=== PATIENT | female | born 1980 | race Caucasian/White ===

== ENCOUNTER 2019-08-06 10:41 | Outpatient (CLI) | payer OTHER, SELFPAY ==
--- NOTE | ~2019-08-06 | US_ITS ---
EXAMINATION: US OB transvaginal DATE: 08/06/2019 11:23 INDICATION: First trimester dating, history of spontaneous TECHNIQUE: Real-time pelvic transabdominal and transvaginal ultrasound was performed. COMPARISON: None. FINDINGS: The uterus measures 9.6 x 5.1 x 5.8 cm. There is an intrauterine gestational sac. A yolk s ac is identified. The pole is not yet identified, likely due to early gestation. There is a 1.5 x 2.2 x 2.3 cm hypoechoic area adjacent to the gestational sac which may be within the endometrial c anal. The ovaries are not visualized however no adnexal abnormality is seen. There is no free fluid i n the pelvis. IMPRESSION: 1. Intrauterine gestational sac without visible pole which could be due to early . 2. Hypoechoic area adjacent to the gestational sac which could reflect subchorionic hemorrhage, bligh sylvester ovum, or hemorrhage within the endometrial canal. Reviewed, dictated and finalized at location B. IMPRESSION: 1. Intrauterine gestational sac without visible pole which could be due t o early . 2. Hypoechoic area adjacent to the gestational sac which could reflect subchori onic hemorrhage, blighted ovum, or hemorrhage within the endometrial canal.
== END 2019-08-06 10:42 ==
PROVIDERS: Visit Provider Obstetrics & Gynecology Gynecology
DX: O26.21 Pregnancy care for patient with recurrent pregnancy loss, first trimester (principal); Z3A.00 Weeks of gestation of pregnancy not specified
CPT/HCPCS: 76817

== ENCOUNTER 2019-08-12 13:54 | Outpatient (CLI) | payer OTHER, SELFPAY ==
--- NOTE | ~2019-08-12 | US_ITS ---
US OB transvaginal DATE: 08/12/2019 14:23 INDICATION: Gestational age determination, evaluate for viability. TECHNIQUE: Real-time imaging and Doppler analysis via transvaginal approach COMPARISON: 08/06/2019 obstetrical ultrasound FINDINGS: The uterus measures approximately 10.4 cm height, 5.2 cm anteroposterior and 6.7 cm transve rse dimension. An intrauterine gestational sac is identified with yolk sac and pole. heart rate of 120 b pm. [place]-rump length averages 0.32 cm, consistent with 6 weeks estimated gestational age +/- 4 days. LOIS by ultrasound is 04/06/2020. Again noted is a cystic area adjacent to the gestational sac, measuring up to 3.7 x 3.2 x 2.6 cm dime nsion, most likely some fluid in the endometrial cavity, with surrounding prominent endometrial echog enicity. There is some additional fluid in the lower endometrial cavity. Differential diagnosis for t he cystic collection would include less likely: blighted ovum, subchorionic hemorrhage. Continued son ographic follow-up is recommended. The right ovary is not visualized. The left ovary measures 2.3 x 1.8 x 1.9 cm. No pelvic free fluid c ollection is detected. IMPRESSION: Large fluid collection apparently within the endometrial cavity, with prominent surroundi ng endometrial echogenicity. Continued sonographic follow-up is recommended Early intrauterine gestational sac; estimated gestational age of 6 weeks +/- 4 days Reviewed, dictated and finalized at Location A. Reviewed, dictated and finalized at location A. IMPRESSION: Large fluid collection apparently within the endometrial cavity, wi th prominent surrounding endometrial echogenicity. Continued sonographic follow -up is recommended Early intrauterine gestational sac; estimated gestational age of 6 weeks +/- 4 days
== END 2019-08-12 13:55 ==
PROVIDERS: Visit Provider Obstetrics & Gynecology Gynecology
DX: O36.8910 Maternal care for other specified fetal problems, first trimester, not applicable or unspecified (principal); Z3A.01 Less than 8 weeks gestation of pregnancy
CPT/HCPCS: 76817

== ENCOUNTER 2019-08-17 12:56 | Outpatient (CLI) | payer OTHER, SELFPAY ==
--- NOTE | ~2019-08-17 | US_ITS ---
EXAMINATION: US OB transvaginal EXAM DATE: 08/17/2019 13:21 INDICATION: , vaginal spotting. First trimester. TECHNIQUE: Pelvic obstetrical transvaginal sonogram was performed by a technologist. There are mult iple grayscale and Doppler images available for interpretation. Comparison is made to prior examinati on from 08/12/2019. FINDINGS: There is intrauterine gestation identified with yolk sac and pole, crown-rump length of 5 mm corresponding to estimated gestational age 6 weeks 2 days. Could not accurately obtain M-mode image, patient was shaking uncontrollably during the exam. There is no heart rate identified on the cine loop or at other times during the exam. There is no evidence of subchorionic hemorrhage, with re solution of previously seen large cystic space adjacent to the chorion on prior study. Left ovary is unremarkable. No evidence free pelvic fluid. IMPRESSION: Absence of heart rate today, demise. Resolution of previously seen subchorio renea fluid collection. Follow-up ultrasound or beta hCG as indicated clinically. Reviewed, dictated and finalized at location B. IMPRESSION: Absence of heart rate today, demise. Resolution of pre viously seen subchorionic fluid collection. Follow-up ultrasound or beta hCG as indicated clinically.
== END 2019-08-17 12:57 ==
PROVIDERS: Visit Provider Obstetrics & Gynecology Gynecology
DX: O26.851 Spotting complicating pregnancy, first trimester (principal); Z3A.00 Weeks of gestation of pregnancy not specified
CPT/HCPCS: 76817

== ENCOUNTER 2020-03-24 21:31 | Observation (INO) | payer SELFPAY ==
--- NOTE | 2020-03-24 21:30 | OBADM ---
This patient, Dee Brandon, admitted to the OB room OB Post 117 for observation. Patient/family oriented to hospital policies and general routines including ID bracelet, bed and alarms, visiting hours, pain management, procedures, bathroom and other care routines, personal items, smoking policy, room service/diet, and visiting hours. Patient/Family are encouraged to report perceived risks to care and to ask questions if they do not understand what they are told or what they should do.
[2020-03-24 21:39] VITALS: BP 116/66; PULSE 88
[2020-03-24 21:45] VITALS: BP 112/67; PULSE 87; TEMP 37.2
[2020-03-24 22:00] VITALS: BP 116/68; PULSE 91
[2020-03-24] MEDS: ACETAMINOPHEN 500 MG TABLET 1000 MG PO (22:15)
[2020-03-24 22:16] VITALS: BP 117/61; PULSE 78
[2020-03-24] MEDS: NIFEdipine 10 MG CAPSULE PO (22:19)
[2020-03-24 23:36] LABS: Glucose Point of Care 122 (65-105)
[2020-03-25] VITALS: BMI 31.4
[2020-03-25 01:46] VITALS: TEMP 36.6
[2020-03-25 01:47] VITALS: BP 95/51; PULSE 76
[2020-03-25 05:35] VITALS: BP 108/62; PULSE 71; TEMP 36.8
[2020-03-25 05:52] LABS: Glucose Point of Care 103 (65-105)
[2020-03-25 08:44] VITALS: BP 83/48; PULSE 76; TEMP 37.1
--- NOTE | 2020-04-20 11:57 | PM.OBTRLD ---
OB - Triage/Final Diagnosis Evaluation Laboratory results: Laboratory Tests 03/24/20 03/25/20 23:29 05:46 POC Capillary Glucose 122 H 103 Final Diagnosis (1) contractions: Code(s): O47.9 - False labor, unspecified Status: Acute
== END 2020-03-25 11:40 | disposition home or self-care (01) ==
PROVIDERS: Admitting Provider Obstetrics & Gynecology Gynecology; Visit Provider Obstetrics & Gynecology
DX: O47.9 False labor, unspecified (principal); Z3A.00 Weeks of gestation of pregnancy not specified
CPT/HCPCS: A9270; G0378; G0379

== ENCOUNTER 2020-05-12 12:26 | Outpatient (RCR) | payer BC, OTHER, SELFPAY ==
[2020-04-07 14:52] VITALS: BP 104/58; PULSE 85
[2020-04-28 14:28] VITALS: BP 114/54; PULSE 92
[2020-05-06 11:35] VITALS: BP 122/42; PULSE 81
[2020-05-09 13:07] VITALS: BP 123/74; PULSE 84
[2020-05-12 13:55] VITALS: BP 123/74; PULSE 84
== END 2020-05-17 07:46 | disposition home or self-care (01) ==
LOC: ANHOBOP 12:26
PROVIDERS: Visit Provider Obstetrics & Gynecology Gynecology
DX: O24.419 Gestational diabetes mellitus in pregnancy, unspecified control (principal); Z3A.33 33 weeks gestation of pregnancy; Z3A.36 36 weeks gestation of pregnancy; Z3A.37 37 weeks gestation of pregnancy; Z3A.38 38 weeks gestation of pregnancy
CPT/HCPCS: 59025

== ENCOUNTER 2020-05-16 05:07 | Inpatient (IN) | payer OTHER, SELFPAY ==
[2020-05-16] VITALS (102 sets, daily range): BP systolic 96–138; BP diastolic 50–82; PULSE 62–187; RESP 16–18; TEMP 36.1–37.1; O2SAT 96–100; BMI 31.6
--- NOTE | 2020-05-16 05:07 | LDADM ---
This patient, Dee Brandon, was admitted to Labor/Delivery/Recovery 102 on 05/16/20 at 05:07. Plans for labor, pain management and were discussed with patient. Patient/family oriented to hospital policies and general routines including ID bracelet, bed and alarms, visiting hours, pain management, procedures, bathroom and other care routines, personal items, smoking policy, room service/diet and guest tray routines, security routines, and visiting hours. Patient/Family are encouraged to report perceived risks to care and to ask questions if they do not understand what they are told or what they should do. See OBIX for further documentation.
[2020-05-16 05:43] LABS: Glucose Point of Care 131 (65-105)
[2020-05-16 05:56] LABS: Basophils Percent Auto 0.4 % (0.2-1.2); Eosinophils Absolute Auto 0.1 K/mm3 (0-0.3); Eosinophils Percent Auto 1.7 % (0-4.4); Hematocrit 30.9 % (37.0-47.0); Hemoglobin 9.5 g/dL (12.0-15.0); Immature Granulocyte Absolute 0.04 K/mm3 (0.00-0.031); Immature Granulocyte Percent A 0.5 % (0-0.5); Lymphocytes Absolute Auto 1.41 K/mm3 (0.9-3.2); Mean Corpuscular HGB Conc 30.7 g/dl (32-36); Mean Corpuscular Hemoglobin 22.8 pg (26-34); Mean Corpuscular Volume 74.1 fl (80-100); Mean Platelet Volume 10.7 fl (7.4-10.4); Monocytes Absolute Auto 0.7 K/mm3 (0.1-0.6); Monocytes Percent Auto 8.3 % (2.6-8.5); Neutrophils Percent Auto 72.1 % (45.5-73.1); Platelet Count Result 214 k/mm3 (150-375); Red Blood Count 4.17 M/mm3 (4.2-5.4); Red Cell Distribution Width 15.9 % (11.5-14.5); White Blood Count 8.3 K/mm3 (4.5-10.0)
[2020-05-16] MEDS: LACTATED RINGERS 1,000 ML 125 ML IV CONT ×2 (05:57→08:15)
[2020-05-16] MEDS: AMPICILLIN 2 GM/NS 100 ML 2 GM/100 ML BAG IVPB (05:57)
[2020-05-16] MEDS: OXYTOCIN 30 UNITS/NS 500 ML 30 UNITS/500 ML BAG IV CONT (06:01)
[2020-05-16 06:41] LABS: HIV 1/2 Ab P24 Ag Result Negative (Negative)
--- NOTE | 2020-05-16 07:46 | WPDOBADMIT ---
Obstetrics - Admit Note Admission Note: record reviewed. No pertinent additions to the history and/or any subsequent changes in the physical findings that are not consistent with the expected course of the were found. Additions to the history and/or subsequent changes in the physical findings follow. None. Here for MIL for cholestasis of . Cervix 3-4/50/-2 AROM with clear fluid. FHTs reactive
--- NOTE | 2020-05-16 08:12 | WPDANESEPPF ---
Anes - Initial Pre Proc Eval Procedure: labor epidural Date/Time: 05/16/20 08:12 Surgeon: Alexandra Christopher MD Pre Op Diagnosis: labor pain Pre Op Diagnosis: Induction of Labor Patient Data Age: 39 Gender: F Height: 1.68 m Weight: 89 kg Last Vital Signs Temp 37.1 C 05/16/20 07:30 Pulse 73 05/16/20 08:11 Resp 18 05/16/20 05:26 BP 130/71 05/16/20 08:11 Pulse Ox 100 05/16/20 08:11 Allergies Allergy/AdvReac Type Severity Reaction Status Date / Time lactose AdvReac Mild Nausea and Verified 05/09/20 12:53 Vomiting Home Medications Medication Instructions Recorded Confirmed Type prenat.vits,nora,ayw-dfth-rookz 1 tablet PO DAILY 03/25/20 05/16/20 History cholecalciferol (vitamin D3) 10,000 unit PO DAILY 05/09/20 05/16/20 History [Vitamin D3] Laboratory Tests 05/16/20 05/16/20 05/16/20 05:34 05:34 05:34 WBC 8.3 K/mm3 K/mm3 (4.5-10.0) RBC 4.17 M/mm3 L M/mm3 (4.2-5.4) Hgb 9.5 g/dL L g/dL (12.0-15.0) Hct 30.9 % L % (37.0-47.0) MCV 74.1 fl L fl (80-100) MCH 22.8 pg L pg (26-34) MCHC 30.7 g/dl L g/dl (32-36) RDW 15.9 % H % (11.5-14.5) Plt Count 214 k/mm3 k/mm3 (150-375) MPV 10.7 fl H fl (7.4-10.4) Immature Gran % (Auto) 0.5 % % (0-0.5) Neut % (Auto) 72.1 % % (45.5-73.1) Lymph % (Auto) 17.0 % L % (18.3-44.2) [place] % (Auto) 8.3 % % (2.6-8.5) Eos % (Auto) 1.7 % % (0-4.4) Baso % (Auto) 0.4 % % (0.2-1.2) Lymph # (Auto) 1.41 K/mm3 K/mm3 (0.9-3.2) [place] # (Auto) 0.7 K/mm3 H K/mm3 (0.1-0.6) Eos # (Auto) 0.1 K/mm3 K/mm3 (0-0.3) Baso # (Auto) 0.0 K/mm3 K/mm3 (0.0-0.1) Abs Immat Gran (auto) 0.04 K/mm3 H K/mm3 (0.00-0.031) Absolute Neuts (auto) 6.0 K/mm3 K/mm3 (1.3-6.7) Absolute Nucleated RBC 0.0 K/mm3 K/mm3 (0.0-0.012) Nucleated RBC % 0.0 % % (0.0-0.2) POC Capillary Glucose RPR Pending HIV 1&2 Ab/P24 Ag 4thGn Negative (Negative) Blood Type Antibody Screen 05/16/20 05/16/20 05:34 05:37 WBC RBC Hgb Hct MCV MCH MCHC RDW Plt Count MPV Immature Gran % (Auto) Neut % (Auto) Lymph % (Auto) [place] % (Auto) Eos % (Auto) Baso % (Auto) Lymph # (Auto) [place] # (Auto) Eos # (Auto) Baso # (Auto) Abs Immat Gran (auto) Absolute Neuts (auto) Absolute Nucleated RBC Nucleated RBC % POC Capillary Glucose 131 mg/dl H mg/dl (65-105) RPR HIV 1&2 Ab/P24 Ag 4thGn Blood Type O Positive Antibody Screen Negative Patient hx anesthesia problems: none Family hx anesthesia problems: none [facility] Past Medical History Medical History (Updated 04/20/20 @ 11:57 by Valentín Ortiz MD) contractions Family History Family History Other No pertinent family history Social History Social History Smoking status: Never smoker Substance use: never Gender identity (if verbalized by the patient): Female Spiritual care concerns: No Anes - Eval Final PreProcedure Day of Procedure 05/16/20 08:12 Patient weight: obese ASA classification: III Anesthesia type and monitoring: regional epidural Informed Consent: The patient's anesthetic plan and its attendant risks and benefits were discussed with the patient/family/POA. Questions were solicited and answers provided to the satisfaction of the patient/family/POA.
[2020-05-16] MEDS: AMPICILLIN 1 GM/NS 50 ML 1 GM/50 ML BAG IVPB (09:47)
[2020-05-16 10:13] LABS: Glucose Point of Care 78 (65-105)
[2020-05-16] MEDS: OXYTOCIN 10 UNITS/ML VIAL 20 UNITS (12:48)
--- NOTE | 2020-05-16 13:08 | PM.OBPRVD ---
OB - Delivery Note Procedure Delivery date: 05/16/20 Procedure: events: Gestational Diabetes (cholestasis of ) Intrapartal events: None Induction method: AROM and per pitocin protocol Delivery monitor: external FHT and external uterine Route of delivery: Laceration Description: None Specimen: No Quantitative Blood Loss (ml): 427 Anesthesia type: Epidural Disposition: floor Baby Date of : 05/16/20 Weeks of gestation at delivery: 38 Infant gender: Female Weight (pounds): 8 Weight (ounces): 9 presentation: vertex position: Left Occiput Anterior Placenta delivery description: Spontaneous cord vessel description: 3 Vessels score one minute: 8 score five minutes: 9
--- NOTE | 2020-05-16 13:13 | PM.OBDSVD ---
DS: Admitting Diagnosis Admitting Diagnosis Admitting Diagnosis: IUP 38 1/2 wks GDMA2 Cholestasis of DS: Discharge Diagnosis Discharge Diagnosis (1) (normal spontaneous vaginal delivery): Code(s): O80 - Encounter for full-term uncomplicated delivery Status: Acute (2) Cholestasis during : Code(s): O26.619 - Liver and biliary tract disorders in , unspecified trimester; K83.1 - Obstruction of bile duct Status: Acute (3) GDM, class A2: Code(s): O24.419 - Gestational diabetes mellitus in , unspecified control Status: Acute (4) 38 weeks gestation of : Code(s): Z3A.38 - 38 weeks gestation of Status: Acute OB - DS: Summary OB Procedures : NST and Ultrasound OB Procedures Intrapartum: Spontaneous Vag Delivery OB Procedures: : None Peripartum Data Infant Delivery Method: Natural Vaginal Laceration Description: None complications: none Status at Discharge Functional status at discharge: independent ambulation Overall status at discharge: patient is progressing back to baseline Time Spent with Patient Time attestation: Total time spent providing and/or coordinating discharge services: DS: Data Data Completed and Pending Labs on day of discharge: Labs from last 24 hours 05/16/20 05/16/20 05/16/20 09:42 05:37 05:34 WBC RBC Hgb Hct MCV MCH MCHC RDW Plt Count MPV Immature Gran % (Auto) Neut % (Auto) Lymph % (Auto) [place] % (Auto) Eos % (Auto) Baso % (Auto) Lymph # (Auto) [place] # (Auto) Eos # (Auto) Baso # (Auto) Abs Immat Gran (auto) Absolute Neuts (auto) Absolute Nucleated RBC Nucleated RBC % POC Capillary Glucose 78 131 H RPR HIV 1&2 Ab/P24 Ag 4thGn Blood Type O Positive Antibody Screen Negative 05/16/20 05/16/20 05/16/20 05:34 05:34 05:34 WBC 8.3 RBC 4.17 L Hgb 9.5 L Hct 30.9 L MCV 74.1 L MCH 22.8 L MCHC 30.7 L RDW 15.9 H Plt Count 214 MPV 10.7 H Immature Gran % (Auto) 0.5 Neut % (Auto) 72.1 Lymph % (Auto) 17.0 L [place] % (Auto) 8.3 Eos % (Auto) 1.7 Baso % (Auto) 0.4 Lymph # (Auto) 1.41 [place] # (Auto) 0.7 H Eos # (Auto) 0.1 Baso # (Auto) 0.0 Abs Immat Gran (auto) 0.04 H Absolute Neuts (auto) 6.0 Absolute Nucleated RBC 0.0 Nucleated RBC % 0.0 POC Capillary Glucose RPR Pending HIV 1&2 Ab/P24 Ag 4thGn Negative Blood Type Antibody Screen Discharge Plan Discharge Attending physician on discharge: Alexandra Christopher Consulting providers: Shree Johnson Discharging Clinician: Alexandra Christopher Anticipated Discharge Date/Time: 05/18/20 13:15 Patient Disposition: Home, Self-Care Activity: may shower and pelvic rest Diet: regular Discharge Instructions: Education: Mom and Baby Guide Given to: Mother Follow-Up: Call your delivering provider's office for an appointment to be seen in: 6 Weeks Mom and baby should come to the [facility] for the follow-up appointment. Appointment Date/Time: at What to expect at your follow-up visit: Blood Pressure Check Physical Assessment Call [phone] if you are unable to keep your appointment time. BREAST CARE: * Wear a snug supportive bra. * For engorgement discomfort: Breast Feeding: * Apply warm moist washcloths * Express milk as needed to relieve engorgement * Wear loose clothing Bottle Feeding: * May apply ice packs * For sore nipples: * Identify correct latch-on * Apply warm moist washcloths before and after nursing * Air dry nipples after nursing * May apply Lansinoh cream to nipples EPISIOTOMY/PERINEAL CARE: * Until bleeding stops, use your jessica bottle after urinating * Change your pa
[2020-05-16] MEDS: OXYTOCIN 30 UNITS/NS 500 ML 30 UNITS/500 ML BAG 125 UNITS IV CONT (13:34)
[2020-05-16] MEDS: IBUPROFEN 600 MG TABLET PO (15:10)
[2020-05-16] MEDS: ACETAMINOPHEN 325 MG TABLET 650 MG PO (16:11)
[2020-05-17] MEDS: IBUPROFEN 600 MG TABLET PO ×2 (05:00→14:04)
[2020-05-17] MEDS: ACETAMINOPHEN 325 MG TABLET 650 MG PO ×2 (05:00→16:57)
[2020-05-17 05:51] LABS: Hematocrit 24.4 % (37.0-47.0); Hemoglobin 7.5 g/dL (12.0-15.0)
[2020-05-17 07:04] LABS: Rapid Plasma Reagin Non-Reactive (NonReactive)
--- NOTE | 2020-05-17 07:35 | WPDANLDPN2 ---
Anes-Prog Note L&D Date/Time: 05/17/20 07:35 Comfortable throughout: labor and delivery Neuraxial method: epidural Epidural/Spinal procedure site: clean & non-tender Neuro status: Neuro function grossly intact. Cardiovascular status: normal Respiratory status: normal Airway patency: baseline Mental status: baseline Post-Op hydration status: normal Vital Signs: Last Vital Signs Temp 36.1 C L 05/16/20 20:00 Pulse 69 05/16/20 20:00 Resp 16 05/16/20 20:00 BP 110/64 05/16/20 20:00 Pulse Ox 100 05/16/20 20:00 Pain score (VAS): 05/21 I/O: Intake & Output 05/16/20 05/16/20 05/17/20 15:59 23:59 07:59 Intake Total 2550 Output Total 1227 Balance 1323 Post-procedural complaints: none Patient feedback: Patient satisfied with anesthetic care.
[2020-05-17 08:15] VITALS: BP 92/51; PULSE 65; RESP 18; TEMP 36.6; O2SAT 99
[2020-05-17] MEDS: DOCUSATE SODIUM 100 MG CAPSULE PO ×2 (08:22→16:56)
[2020-05-17] MEDS: POLYSACCHARIDE IRON COMPLEX 150 MG CAPSULE PO ×2 (08:22→16:56)
[2020-05-17] MEDS: MULTIVIT/MIN/PREN/FOL AC/IRON TABLET 1 TAB PO (08:22)
--- NOTE | 2020-05-17 12:48 | PC.NURSE ---
Consulted with patient, reviewed feeding cues, frequencies, duration of feedings, feeding elimination flow sheet, and signs of adequate intake. Demonstrated stimulation techniques to wake for feeding. Assisted with to breast. Reviewed positioning/alignment, holding breast and asymmetrical latch on. was able to latch correctly. Infant nursed eagerly, with steady draws and frequent swallowing noted. Reviewed signs of a correct latch, effective nursing and suck swallow ratio. was able to maintain latch without discomfort to mother. Nipple care reviewed. Instructed mother to call out for RN assistance if she is unable to latch for feeding or she has discomfort with nursing. Instructed feeding should be initiated three hours from start of last feeding or if feeding cues are noted before. Mother voiced understanding of information shared.
[2020-05-17 20:00] VITALS: BP 109/57; PULSE 80; RESP 16; TEMP 36.4; O2SAT 98
--- NOTE | 2020-05-18 07:47 | PM.OBPNVD ---
OB - PN: Subj Subjective Date/time seen: 05/18/20 07:47 Patient comments: no complaints and pain well controlled baby status: doing well OB - PN: Obj Data Labs CBC & Chem 7: 05/17/20 03:50 OB - PN A/P Plan day: 2 Plan: routine care, discharge home, follow up 6 weeks and other (plans condoms until vas) Time Spent With Patient Time: Total time spent is greater than 50% in coordination of care (as documented) at patient's floor/unit and/or counseling patient: Exam : Bimanual exam- vagina & uterus: other (Uterus firm, nt @U)
[2020-05-18] MEDS: DOCUSATE SODIUM 100 MG CAPSULE PO (07:55)
[2020-05-18] MEDS: MULTIVIT/MIN/PREN/FOL AC/IRON TABLET 1 TAB PO (07:55)
[2020-05-18] MEDS: POLYSACCHARIDE IRON COMPLEX 150 MG CAPSULE PO ×2 (07:56→16:44)
[2020-05-18] MEDS: IBUPROFEN 600 MG TABLET PO ×2 (07:57→16:43)
[2020-05-18 08:00] VITALS: PULSE 74; RESP 18; O2SAT 99
[2020-05-18 08:30] VITALS: BP 116/57; PULSE 74; RESP 18; TEMP 37.2; O2SAT 99
--- NOTE | 2020-05-18 12:06 | PC.NURSE ---
Mother verbalizes she is able to independently latch with appropriate positioning/alignment. Declines having feeding assessed today. Encouraged mom to feed infant as much as desires to go to breast. She states she has minimal nipple discomfort, is feeding as required and waking to feed if needed. Infant has had 8 effective feedings in the past 24 hours, and is currently meeting outcomes for weight, output, jaundice and feeding frequencies. Will continue to monitor for next bilirubin. Mother states she feels confident to continue effective at home. Mom states she struggled last night but had a really good feeding this am, mom states it is starting to feel like her milk is coming in. Reviewed transition to breast milk, signs of adequate intake, and engorgement/relief. Instructed to call ICP if intake/output less than required. Reviewed community resources on the [facility] website and in the Mom/Baby guide. Information on outpatient services provided. Mother has no further questions at this time.
--- NOTE | 2020-05-18 15:04 | PC.NURSE ---
Nipple shield provided to mother due to mom requesting one. Mom states she has used a shield before. Infant crying at the breast and not wanting to latch so mom wanted to try with shield. Assisted mom to get infant calm with a pacifier when wouldn't latch with shield. Mom is going to comfort infant and then attempt to feed. Encouraged mom to call out if she needed assistance. Instructions given on application and cleaning of shield. Discussed nipple shield precautions and possible complications. Patient able to return demonstration on proper application of shield. Discussed the need to initiate pumping if continues to nurse with the shield. Patient verbalizes understanding.
== END 2020-05-18 17:30 | disposition home or self-care (01) | DRG 560 ==
LOC: ANHLDR 13:15 → ANHOB2 16:02
PROVIDERS: Admitting Provider Obstetrics & Gynecology Gynecology; PCP Internal Medicine; Visit Provider Obstetrics & Gynecology Gynecology
DX: O24.429 Gestational diabetes mellitus in childbirth, unspecified control (principal); O26.62 Liver and biliary tract disorders in childbirth; K83.1 Obstruction of bile duct; O99.824 Streptococcus B carrier state complicating childbirth; Z3A.38 38 weeks gestation of pregnancy; Z37.0 Single live birth
CPT/HCPCS: 36415; 85014; 85018; 85025; 86592; 86703; 86850; 86900; 86901; A9270; G0432; J0290; J2590; J2795; J7120

== ENCOUNTER 2021-09-11 11:40 | Outpatient (RCR) | payer OTHER, SELFPAY ==
[2021-09-07 14:25] VITALS: BP 119/66; PULSE 83
[2021-09-11 12:16] VITALS: BP 123/78; PULSE 71
== END 2021-10-19 10:15 | disposition home or self-care (01) ==
LOC: ANHOBOP 11:40
PROVIDERS: PCP Internal Medicine; Visit Provider Obstetrics & Gynecology Gynecology
DX: O24.419 Gestational diabetes mellitus in pregnancy, unspecified control (principal); O09.513 Supervision of elderly primigravida, third trimester; Z3A.37 37 weeks gestation of pregnancy; Z3A.38 38 weeks gestation of pregnancy
CPT/HCPCS: 59025

== ENCOUNTER 2021-09-24 05:57 | Inpatient (IN) | payer OTHER, SELFPAY ==
[2021-09-24] VITALS (40 sets, daily range): BP systolic 111–163; BP diastolic 59–100; PULSE 62–107; RESP 14–20; TEMP 36.4–36.9; O2SAT 98–100; BMI 34.1
--- NOTE | 2021-09-24 06:37 | LDADM ---
This patient, Dee Hutchinsonwilogan, was admitted to Labor/Delivery/Recovery 106 on 09/24/21 at 05:57. Plans for labor, pain management and were discussed with patient. Patient/family oriented to hospital policies and general routines including ID bracelet, bed and alarms, visiting hours, pain management, procedures, bathroom and other care routines, personal items, smoking policy, room service/diet and guest tray routines, security routines, and visiting hours. Patient/Family are encouraged to report perceived risks to care and to ask questions if they do not understand what they are told or what they should do. See OBIX for further documentation.
[2021-09-24 07:07] LABS: Basophils Percent Auto 0.5 % (0.2-1.2); Eosinophils Absolute Auto 0.1 K/mm3 (0-0.3); Eosinophils Percent Auto 1.4 % (0-4.4); Hematocrit 33.6 % (37.0-47.0); Hemoglobin 10.4 g/dL (12.0-15.0); Immature Granulocyte Absolute 0.03 K/mm3 (0.00-0.031); Immature Granulocyte Percent A 0.4 % (0-0.5); Lymphocytes Absolute Auto 1.32 K/mm3 (0.9-3.2); Lymphocytes Percent Auto 16.4 % (18.3-44.2); Mean Corpuscular Hemoglobin 24.6 pg (26-34); Mean Corpuscular Volume 79.4 fl (80-100); Mean Platelet Volume 11.7 fl (7.4-10.4); Monocytes Absolute Auto 0.7 K/mm3 (0.1-0.6); Monocytes Percent Auto 8.4 % (2.6-8.5); Neutrophils Absolute Auto 5.9 K/mm3 (1.3-6.7); Neutrophils Percent Auto 72.9 % (45.5-73.1); Platelet Count Result 224 k/mm3 (150-375); Red Blood Count 4.23 M/mm3 (4.2-5.4); Red Cell Distribution Width 15.9 % (11.5-14.5); White Blood Count 8.1 K/mm3 (4.5-10.0)
[2021-09-24] MEDS: OXYTOCIN 30 UNITS/NS 500 ML 30 UNITS/500 ML BAG IV CONT (07:29)
[2021-09-24] MEDS: LACTATED RINGERS 1,000 ML 125 ML IV CONT ×2 (07:29→13:23)
[2021-09-24 07:56] LABS: HIV 1/2 Ab P24 Ag Result Negative (Negative)
--- NOTE | 2021-09-24 08:01 | WPDOBADMIT ---
Obstetrics - Admit Note Admission Note: record reviewed. No pertinent additions to the history and/or any subsequent changes in the physical findings that are not consistent with the expected course of the were found. Additions to the history and/or subsequent changes in the physical findings follow. Here for MIL for GDMA2. Cervix 4/50/-2 AROM with clear fluid. FHTs reactive.
[2021-09-24 09:45] LABS: Rapid Plasma Reagin Non-Reactive (NonReactive)
[2021-09-24 11:51] LABS: Glucose Point of Care 81 mg/dl (65-105)
--- NOTE | 2021-09-24 14:14 | PM.OBPRVD ---
OB - Delivery Note Procedure Delivery date: 09/24/21 Procedure: by RN into bed Events: Gestational Diabetes (A2) Induction method: AROM and Per Pitocin Protocol Delivery monitor: External FHT and External Uterine Route of delivery: Laceration Description: Periurethral Delivery repair: vicryl (3-0) Specimen: No Quantitative Blood Loss (ml): 200 Anesthesia type: Local Disposition: Floor Baby Date of : 09/24/21 Weeks of gestation at delivery: 40 gender: Male Weight (pounds): 8 Weight (ounces): 1 presentation: vertex Placenta delivery description: Spontaneous Cord Vessel Description: 3 Vessels score one minute: 8 score five minutes: 9
[2021-09-24] MEDS: OXYTOCIN 30 UNITS/NS 500 ML 30 UNITS/500 ML BAG 125 UNITS IV CONT (14:36)
[2021-09-24] MEDS: IBUPROFEN 600 MG TABLET PO (19:37)
[2021-09-24] MEDS: POLYSACCHARIDE IRON COMPLEX 150 MG CAPSULE PO (19:39)
--- NOTE | 2021-09-24 19:44 | OBPPTRN ---
Addendum entered by Madeleine Gibbs RN 09/24/21 19:44: Via W/C Original Note: 1651 Patient transferred to post room #282 via ( ). Support person present. Oriented to unit, room, information board, rooming in, admission packet and security measures. Patient verbalizes understanding.
[2021-09-25 00:58] VITALS: BP 112/59; PULSE 73; RESP 16; TEMP 36.6; O2SAT 99
[2021-09-25 03:36] VITALS: BP 112/75; PULSE 77; RESP 16; TEMP 36.8; O2SAT 100
[2021-09-25 05:01] LABS: Hematocrit 30.9 % (37.0-47.0); Hemoglobin 9.3 g/dL (12.0-15.0)
[2021-09-25 07:30] VITALS: BP 128/85; PULSE 70; RESP 18; TEMP 36.4; O2SAT 97
--- NOTE | 2021-09-25 07:46 | PM.OBPNVD ---
OB - PN: Subj Subjective Date/time seen: 09/25/21 07:46 Patient comments: no complaints baby status: doing well [place] feeding status: exclusively breast feeding OB - PN: Obj Data Labs CBC & Chem 7: 09/25/21 03:42 Labs: Laboratory Results - last 24 hr 09/24/21 09/24/21 09/24/21 06:41 06:42 06:42 Hgb Hct POC Capillary Glucose RPR Non-reactive HIV 1&2 Ab/P24 Ag 4thGn Negative Antibody Screen Negative 09/24/21 09/25/21 11:41 03:42 Hgb 9.3 L Hct 30.9 L POC Capillary Glucose 81 RPR HIV 1&2 Ab/P24 Ag 4thGn Antibody Screen OB - PN A/P Plan day: 1 Plan: routine care Time Spent With Patient Time: Total time spent is greater than 50% in coordination of care (as documented) at patient's floor/unit and/or counseling patient: Exam : Bimanual exam- vagina & uterus: other (Uterus firm, nt @U)
--- NOTE | 2021-09-25 07:47 | PM.OBDSVD ---
DS: Admitting Diagnosis Discharge Date 09/26/21 Admitting Diagnosis IUP 40 1/ MIL GDMA2 DS: Discharge Diagnosis Discharge Diagnosis (1) (normal spontaneous vaginal delivery): Code(s): O80 - Encounter for full-term uncomplicated delivery Status: Acute (2) GDM, class A2: Code(s): O24.419 - Gestational diabetes mellitus in , unspecified control Status: Acute OB - DS: Summary OB Procedures : NST and Ultrasound OB Procedures Intrapartum: Spontaneous Vag Delivery (by RN) OB Procedures: : None Peripartum Data Infant Delivery Method: Natural Vaginal Laceration Description: Periurethral complications: none Status at Discharge Functional status at discharge: independent ambulation Overall status at discharge: patient is progressing back to baseline Time Spent with Patient Time attestation: Total time spent providing and/or coordinating discharge services: DS: Data Data Completed and Pending Labs on day of discharge: Labs from last 24 hours 09/25/21 09/24/21 09/24/21 03:42 11:41 06:42 Hgb 9.3 L Hct 30.9 L POC Capillary Glucose 81 RPR HIV 1&2 Ab/P24 Ag 4thGn Antibody Screen Negative 09/24/21 09/24/21 06:42 06:41 Hgb Hct POC Capillary Glucose RPR Non-reactive HIV 1&2 Ab/P24 Ag 4thGn Negative Antibody Screen Discharge Plan Discharge Attending physician on discharge: Alexandra Christopher Discharging Clinician: Dottie Schroeder Anticipated Discharge Date/Time: 09/26/21 07:48 Patient Disposition: Home, Self-Care Activity: may shower and pelvic rest Diet: regular Discharge Instructions: Education: Mom and Baby Guide Given to: Mother Follow-Up: Call your delivering provider's office for an appointment to be seen in: 6 Weeks Mom and baby should come to the [facility] for the follow-up appointment. Appointment Date/Time: September 27, 2021 at 9:00 am What to expect at your follow-up visit: Physical Assessment Call [phone] if you are unable to keep your appointment time. BREAST CARE: * Wear a snug supportive bra. * For engorgement discomfort: Breast Feeding: * Apply warm moist washcloths * Express milk as needed to relieve engorgement * Wear loose clothing * For sore nipples: * Identify correct latch-on * Apply warm moist washcloths before and after nursing * Air dry nipples after nursing * May apply Lansinoh cream to nipples PERINEAL CARE: * Until bleeding stops, use your jessica bottle after urinating * Change your pad frequently throughout the day * You may take sitz baths several times a day (fill your bathtub with warm water and soak for 20 minutes.) Do NOT bathe in the water * No tub baths until seen by your physician - You may shower ACTIVITY: * Rest as much as possible. * Do not exercise or lift anything heavier than your baby (such as laundry or other children.) * Avoid stairs or driving as much as possible. * Do not put anything into the vagina. No douching, tampons, or sexual activity until seen by physician. NOTIFY PHYSICIAN IF YOU HAVE ANY QUESTIONS OR IF ANY OF THE FOLLOWING SYMPTOMS OCCUR: * If your perineum becomes red, swollen, or more painful than what you have experienced in the hospital. * If your vaginal bleeding becomes foul smelling. * If your vaginal bleeding becomes more heavy than a period or if your bleeding changes from pink to bright red. However, you may pass an occasional walnut-sized clot once or twice for the first week . * If you experience a sharp, shooting pain in you calves. * If you discover a hard, reddened area on your breast or if you experience flu-like symptoms. DIET: * Eat regular, well-balanced meals. * Drink plenty of fluids daily. If , drink to thirst. Patient Instructions: Antibiotic Form Stand Alone Forms: General Discharge Informa
[2021-09-25] MEDS: IBUPROFEN 600 MG TABLET PO ×2 (08:30→17:44)
[2021-09-25] MEDS: DOCUSATE SODIUM 100 MG CAPSULE PO ×2 (08:30→17:44)
[2021-09-25] MEDS: MULTIVIT/MIN/PREN/FOL AC/IRON TABLET 1 TAB PO (08:30)
[2021-09-25] MEDS: POLYSACCHARIDE IRON COMPLEX 150 MG CAPSULE PO ×2 (08:30→17:45)
[2021-09-25 12:14] VITALS: BP 123/68; PULSE 73; RESP 18; TEMP 36.6; O2SAT 100
[2021-09-26 07:50] VITALS: BP 126/69; PULSE 72; RESP 18; TEMP 36.6; O2SAT 100
[2021-09-26] MEDS: DOCUSATE SODIUM 100 MG CAPSULE PO (09:56)
[2021-09-26] MEDS: POLYSACCHARIDE IRON COMPLEX 150 MG CAPSULE PO (09:56)
[2021-09-26] MEDS: MULTIVIT/MIN/PREN/FOL AC/IRON TABLET 1 TAB PO (09:56)
--- NOTE | 2021-09-26 11:29 | PM.OBPNVD ---
OB - PN: Subj Subjective Date/time seen: 09/26/21 11:29 Patient comments: pain well controlled [place] baby status: doing well and nursing well OB - PN: Obj Data Labs CBC & Chem 7: 09/25/21 03:42 OB - PN A/P Time Spent With Patient Time: Total time spent is greater than 50% in coordination of care (as documented) at patient's floor/unit and/or counseling patient: Review of Systems Review of Systems: All systems reviewed & are unremarkable except as noted in HPI and below Constitutional: Constitutional: Reports no additional constitutional complaints Genitourinary: Comments: Urinating without difficulty. Exam Narrative: Alert and oriented. Mood is pleasant and cooperative. Urinating without difficulty. Denies passing any large clots. Perineum with minimal edema. Const: Limitations: no limitations Resp: Effort & Inspection: normal respiratory effort Auscultation: clear to auscultation bilaterally Cardio: Rate: regular rate GI: Inspection: normal to inspection Extrem: General: normal to inspection and full ROM Psych: Appearance: grossly normal Mental Status: mental status grossly normal Speech and movement: Normal speech and movement present Affect: normal affect
--- NOTE | 2021-09-26 11:30 | PM.DS ---
DS: Admitting Diagnosis Discharge Date 09/26/21 Admitting Diagnosis IUP 40 05/18, now delivered. s/p MIL GDMA2 DS: Discharge Diagnosis Discharge Diagnosis (1) (normal spontaneous vaginal delivery): Code(s): O80 - Encounter for full-term uncomplicated delivery Status: Acute (2) GDM, class A2: Code(s): O24.419 - Gestational diabetes mellitus in , unspecified control Status: Acute DS: Summary Hospital Course Hospital Course: Uncomplicated Time Spent with Patient Time attestation: Total time spent providing and/or coordinating discharge services: Exam Const: Orientation/consciousness: patient oriented x3 Limitations: no limitations Resp: Effort & Inspection: normal respiratory effort and able to speak in complete sentences Auscultation: clear to auscultation bilaterally Cardio: Rate: regular rate Peripheral pulses: Peripheral pulses 2+ throughout GI: Inspection: normal to inspection Auscultation: normal bowel sounds : General: Yes bladder normal to palpation Bimanual exam- vagina & uterus: bladder normal to palpation Other: Fundus firm Skin: General skin exam: normal color Other: Incision Neuro: General: patient oriented x3 Cognition (Neuro): normal cognition Speech: normal speech Extrem: General: normal to inspection Psych: Appearance: grossly normal Mental Status: mental status grossly normal Speech and movement: Normal speech and movement present Affect: normal affect Attitude: cooperative Thought process: Normal thought process present Discharge Plan Discharge Attending physician on discharge: Alexandra Christopher Discharging Clinician: Dottie Schroeder Anticipated Discharge Date/Time: 09/26/21 07:48 Patient Disposition: Home, Self-Care Activity: may shower and pelvic rest Diet: regular Patient Instructions: Antibiotic Form Stand Alone Forms: General Discharge Information Follow-up/Referrals: Alexandra Christopher MD [Physician] - 6 Weeks Discharge Medications: Continued cholecalciferol (vitamin D3) [Vitamin D3] 125 mcg (5,000 unit) Tablet 10,000 unit PO DAILY RF: 0 polysaccharide iron complex 150 mg iron Capsule 150 mg PO BIDWM Qty: 60 RF: 2 prenat.vits,nora,[id number] Tablet 1 tablet PO DAILY RF: 0 Discontinued Novolin N NPH U-100 Insulin 100 unit/mL Suspension 4 unit SUBCUT HS RF: 0 Date of admission: 09/24/21 05:57 Primary Care Provider: Randy Vann Admitting Provider: Alexandra Christopher Attending physician on admission: Alexandra Christopher Condition: Stable
--- NOTE | 2021-09-26 12:58 | PC.NURSE ---
[phone] Mother led the conversation with her experience () and plan to feed her so far and her ability to independently latch infant optimally without discomfort. Mother denies any need for additional education at this point. She mentioned that she has a mailroom coordinator that is also a LC that will work with her if she has any issues. She has pumped while here, syringe fed breastmilk, used a nipple shield once in 24 hours and it was reported that infant is latching shallow. Mother declines assistance with latching. has had appropriate feedings in the last 24 hours meets the outcomes for weight, output and jaundice at this time. Mother states she is confident to continue /pumping/supplementing her at home or when to call for assistance and denies any additional assistance or education at this time. Reinforced understanding of milk production, transition of milk, signs of adequate intake, prevention/relief of engorgement, responsive after visualizing feeding cues, the different methods of stimulating to breastfeed 2-3 hours after the start of the last feeding, community resources, medication information reviewed per [facility] and when to call a provider using the resource of the mom and baby guide/[facility] website. Mother voiced understanding of the education shared. Reported to the primary RN.
== END 2021-09-26 13:05 | disposition home or self-care (01) | DRG 560 ==
LOC: ANHLDR 06:06 → ANHOB2 16:58
PROVIDERS: Admitting Provider Obstetrics & Gynecology Gynecology; PCP Internal Medicine; Visit Provider Obstetrics & Gynecology Gynecology
DX: O24.429 Gestational diabetes mellitus in childbirth, unspecified control (principal); Z37.0 Single live birth; Z3A.40 40 weeks gestation of pregnancy; O71.82 Other specified trauma to perineum and vulva
CPT/HCPCS: 36415; 82948; 85014; 85018; 85025; 86592; 86703; 86850; 86900; 86901; A9270; G0432; J2590; J2795; J7120